=== PATIENT | female | born 1930 | race Caucasian/White ===

== ENCOUNTER 2019-01-08 14:35 | Inpatient (IN) | payer MEDICARE, OTHER ==
[~2019-01-08] VITALS: Ht 162.6 cm; Wt 68.9 kg
[~2019-01-08 14:35] MED LIST: PRED10TA PO
[2019-01-08 15:00] LABS: BASOPHILS % (AUTO) 0.3 % (0-1); EOSINOPHILS # (AUTO) 0.1 X10'3 (0-0.9); EOSINOPHILS % (AUTO) 0.5 % (0-6); HEMATOCRIT 43.7 % (35.0-45.0); HEMOGLOBIN 14.7 g/dl (12.0-16.0); LYMPHOCYTES # (AUTO) 0.8 X10'3 (1.1-4.8); MEAN CORPUSCULAR HEMOGLOBIN 31.9 PG (27.0-31.0); MEAN CORPUSCULAR HGB CONC 33.6 g/dL (33.0-36.5); MEAN CORPUSCULAR VOLUME 94.8 FL (78-98); MEAN PLATELET VOLUME 10.3 FL (7.4-10.4); MONOCYTES # (AUTO) 0.8 X10'3 (0-0.9); MONOCYTES % (AUTO) 6.6 % (2-12); NEUTROPHILS # (AUTO) 9.8 X10'3 (1.8-7.7); NEUTROPHILS % (AUTO) 85.6 % (42-75); PLATELET COUNT 206 X10'3 (140-440); RED BLOOD COUNT 4.61 X10'6 (4.20-5.60); RED CELL DISTRIBUTION WIDTH 14.2 % (11.5-14.5); WHITE BLOOD COUNT 11.4 X10'3 (4.5-11.0)
[2019-01-08 15:12] LABS: PARTIAL THROMBOPLASTIN TIME 35 SECONDS (22-32)
[2019-01-08 15:20] LABS: ALANINE AMINOTRANSFERASE 24 U/L (12-78); ALBUMIN 3.9 G/DL (3.4-5.0); ALBUMIN/GLOBULIN RATIO 1.1 (1.1-1.5); ALKALINE PHOSPHATASE 52 IU/L (46-116); ANION GAP 11 (8-16); ASPARTATE AMINO TRANSFERASE 34 U/L (10-37); BILIRUBIN,TOTAL 1.2 MG/DL (0.1-1.0); BLOOD UREA NITROGEN 16 MG/DL (7-18); BUN/CREATININE RATIO 13.4 (6.6-38.0); CALCIUM 9.7 MG/DL (8.5-10.1); CHLORIDE 105 MMOL/L (99-107); CREATININE 1.19 MG/DL (0.40-0.90); GLUCOSE 108 MG/DL (70-104); POTASSIUM 4.4 MMOL/L (3.5-5.1); SODIUM 141 MMOL/L (135-145); TOTAL CARBON DIOXIDE 25.1 MMOL/L (24-32); TOTAL PROTEIN 7.5 G/DL (6.4-8.2); eGFR 43 ML/MIN
[2019-01-08] MEDS ORDERED: aspirin 325mg tablet PO ONE (15:20)
[2019-01-08] MEDS ORDERED: LISI-600 PO (15:33)
[2019-01-08] MEDS ORDERED: aspirin 81mg tab.chew PO ONE ×2 (15:35→18:55)
[2019-01-08] MEDS ORDERED: heparin 25,000 UNIT/250ml bag 250 ML IV SCH (15:36)
[2019-01-08] MEDS ORDERED: heparin 10,000 units/1 ML INJ IV ONE (15:40)
[2019-01-08] MEDS ORDERED: nitroGLYCERIN 0.4mg/hour patch TD ONE (15:40)
[2019-01-08] MEDS ORDERED: morphine 2 MG/ML inj. syringe IV PRN ×2 (16:10)
[2019-01-08] MEDS ORDERED: magnesium hydroxide 30ml (MOM) UD suspension PO PRN (16:10)
[2019-01-08] MEDS ORDERED: potassium Cl 20 mEq SR tablet PO PRN ×2 (16:10)
[2019-01-08] MEDS ORDERED: potassium CL 10mEq/100ml bag 100 ML IV PRN ×2 (16:10)
[2019-01-08] MEDS ORDERED: acetaminophen 325mg tablet PO PRN (16:10)
[2019-01-08] MEDS ORDERED: mag hydrox/Alum hydrox/simeth 30ml oral suspension PO PRN (16:10)
[2019-01-08] MEDS ORDERED: nitroGLYCERIN 0.4mg SUBLingual tab SL PRN ×2 (16:10→18:55)
[2019-01-08] MEDS ORDERED: ondansetron/PF 4mg/2ml inj IV PRN (16:10)
[2019-01-08 16:57] LABS: HEMOGLOBIN A1C 5.7 % (4.5-6.2)
[2019-01-08] MEDS ORDERED: iohexol 350MG/ML 100ml bottle IV ONE (17:34)
[2019-01-08] MEDS ORDERED: iohexol 350 MG/ML 50ML vial IV ONE (17:34)
[2019-01-08] MEDS ORDERED: LIDOcaine 1% (10mg/ml)w/preservative injection 20ml MDV ONE (17:34)
[2019-01-08] MEDS ORDERED: fentaNYL/PF 50MCG/1 ML 2ML syringe ONE (17:34)
[2019-01-08] MEDS ORDERED: heparin 1,000unit/ml 10ml vial 10 ML ONE (17:34)
[2019-01-08] MEDS ORDERED: midazolam 2 mg/2 ml injection ONE (17:34)
[2019-01-08] MEDS ORDERED: tirofiban 12.5mg in NS 250mL 250 ML IV ONE (17:35)
[2019-01-08] MEDS ORDERED: diphenhydrAMINE 50 mg/ml inj ONE (17:35)
[2019-01-08 18:00] VITALS: BP 118/75
[2019-01-08] MEDS ORDERED: sodium chloride 0.45% 1,000 ML IV ONE (18:55)
[2019-01-08] MEDS ORDERED: OXAZEpam 15mg capsule PO PRN (19:00)
[2019-01-08] MEDS ORDERED: proCHLORperazine 10 MG/2 ml inj IV PRN (19:00)
[2019-01-08] MEDS ORDERED: HYDROcodone/acetaminophen 5mg/325mg tablet PO PRN (19:05)
[2019-01-08] MEDS ORDERED: HYDROcodone/acetaminophen 10/325mg tab PO PRN (19:05)
[2019-01-08] MEDS: carvedilol 6.25mg tablet PO SCH (19:49)
[2019-01-08] MEDS ORDERED: metoprolol tartrate 12.5mg (1/2 tablet) PO SCH (20:00)
[2019-01-08 22:00] VITALS: BP 110/75
[2019-01-09] VITALS (7 sets, daily range): BP systolic 83–118; BP diastolic 55–70
[2019-01-09 05:55] LABS: ALBUMIN 3.2 G/DL (3.4-5.0); ANION GAP 10 (8-16); BLOOD UREA NITROGEN 16 MG/DL (7-18); BUN/CREATININE RATIO 16.5 (6.6-38.0); CALCIUM 8.5 MG/DL (8.5-10.1); CHLORIDE 106 MMOL/L (99-107); CHOL/HDL RATIO 3.6 (0.00-4.99); CHOLESTEROL 147 MG/DL (0-200); CREATININE 0.97 MG/DL (0.40-0.90); GLUCOSE 94 MG/DL (70-104); HDL CHOLESTEROL 41 MG/DL (35-60); LDL CHOLESTEROL 97 MG/DL (50-100); POTASSIUM 4.2 MMOL/L (3.5-5.1); SODIUM 139 MMOL/L (135-145); TOTAL CARBON DIOXIDE 23.2 MMOL/L (24-32); TRIGLYCERIDES 72 MG/DL (20-135); eGFR 54 ML/MIN
[2019-01-09 05:57] LABS: BASOPHILS % (AUTO) 0.3 % (0-1); EOSINOPHILS # (AUTO) 0.2 X10'3 (0-0.9); EOSINOPHILS % (AUTO) 2.6 % (0-6); HEMOGLOBIN 13.6 g/dl (12.0-16.0); LYMPHOCYTES # (AUTO) 1.6 X10'3 (1.1-4.8); LYMPHOCYTES % (AUTO) 19.2 % (21-51); MEAN CORPUSCULAR HEMOGLOBIN 31.9 PG (27.0-31.0); MEAN CORPUSCULAR HGB CONC 33.9 g/dL (33.0-36.5); MEAN CORPUSCULAR VOLUME 94.2 FL (78-98); MEAN PLATELET VOLUME 10.3 FL (7.4-10.4); MONOCYTES # (AUTO) 0.8 X10'3 (0-0.9); MONOCYTES % (AUTO) 9.7 % (2-12); NEUTROPHILS # (AUTO) 5.5 X10'3 (1.8-7.7); NEUTROPHILS % (AUTO) 68.2 % (42-75); PLATELET COUNT 181 X10'3 (140-440); RED BLOOD COUNT 4.25 X10'6 (4.20-5.60); RED CELL DISTRIBUTION WIDTH 14.1 % (11.5-14.5); WHITE BLOOD COUNT 8.1 X10'3 (4.5-11.0)
--- NOTE | 2019-01-09 07:03 | NUR ---
Patient in room MED 316. I have received report from ARNIE Maria and had the opportunity to ask questions and assume patient care.
[2019-01-09] MEDS: clopidogrel 75mg tablet PO SCH (07:45)
[2019-01-09] MEDS: aspirin 81mg tab.chew PO SCH (07:46)
[2019-01-09] MEDS: carvedilol 6.25mg tablet PO SCH (07:52)
[2019-01-09] MEDS: K and/or MAG REPLACEMENT MC SCH (08:00)
[2019-01-09] MEDS ORDERED: aspirin 81mg tablet.DR PO SCH (08:00)
[2019-01-09] MEDS ORDERED: lisinopril 10 MG tablet PO SCH (08:00)
[2019-01-09 08:30] LABS: MAGNESIUM 1.8 MG/DL (1.5-2.4)
[2019-01-09] MEDS: atorvastatin 20mg tablet PO SCH (12:13)
[2019-01-09] MEDS ORDERED: carVEDilol 3.125mg tablet PO SCH (13:15)
--- NOTE | 2019-01-09 13:18 | NUR ---
DR. CASTRO AT BEDSIDE. NEW ORDERS RECEIVED: D/C COREG 6.25MG BID, D/C LISINOPRIL 2.5MG DAILY. START COREG 3.125MG PO BID GIVE ONE DOSE NOW, THEN START BID TONIGHT @ 1999.
--- NOTE | 2019-01-09 18:26 | NUR ---
Problems reprioritized. Patient report given, questions answered & plan of care reviewed with ARNIE Wilkerson and ARNIE Omer.
--- NOTE | 2019-01-09 18:40 | NUR ---
RECEIVED REPORT FROM TO GAITAN
[2019-01-09] MEDS: carVEDilol 3.125mg tablet PO SCH ×2 (19:51→22:23)
[2019-01-09] MEDS ORDERED: lisinopril 2.5mg tablet PO SCH (20:00)
[2019-01-10 02:00] VITALS: BP 102/59
[2019-01-10 04:26] LABS: BASOPHILS % (AUTO) 0.4 % (0-1); EOSINOPHILS # (AUTO) 0.5 X10'3 (0-0.9); HEMATOCRIT 39.9 % (35.0-45.0); HEMOGLOBIN 13.6 g/dl (12.0-16.0); LYMPHOCYTES # (AUTO) 1.6 X10'3 (1.1-4.8); LYMPHOCYTES % (AUTO) 18.2 % (21-51); MEAN CORPUSCULAR HEMOGLOBIN 31.9 PG (27.0-31.0); MEAN CORPUSCULAR VOLUME 93.9 FL (78-98); MEAN PLATELET VOLUME 10.6 FL (7.4-10.4); MONOCYTES % (AUTO) 11.3 % (2-12); NEUTROPHILS # (AUTO) 5.5 X10'3 (1.8-7.7); NEUTROPHILS % (AUTO) 64.1 % (42-75); PLATELET COUNT 164 X10'3 (140-440); RED BLOOD COUNT 4.25 X10'6 (4.20-5.60); RED CELL DISTRIBUTION WIDTH 14.1 % (11.5-14.5); WHITE BLOOD COUNT 8.6 X10'3 (4.5-11.0)
[2019-01-10 04:34] LABS: ALBUMIN 3.2 G/DL (3.4-5.0); ANION GAP 6 (8-16); BLOOD UREA NITROGEN 20 MG/DL (7-18); BUN/CREATININE RATIO 18.9 (6.6-38.0); CALCIUM 8.3 MG/DL (8.5-10.1); CHLORIDE 104 MMOL/L (99-107); CREATININE 1.06 MG/DL (0.40-0.90); GLUCOSE 99 MG/DL (70-104); POTASSIUM 4.6 MMOL/L (3.5-5.1); SODIUM 137 MMOL/L (135-145); TOTAL CARBON DIOXIDE 26.7 MMOL/L (24-32); eGFR 49 ML/MIN
[2019-01-10 04:48] LABS: LARGE PLATELETS FEW; PLATELET ESTIMATE NORMAL
[2019-01-10 06:00] VITALS: BP 108/68
--- NOTE | 2019-01-10 06:00 | NUR ---
Reviewed and agreed with ARNIE Omer's chart
--- NOTE | 2019-01-10 06:00 | NUR ---
Problems reprioritized. Patient report given, questions answered & plan of care reviewed with ARNIE Cm.
--- NOTE | 2019-01-10 07:20 | NUR ---
Patient in room MED 316. I have received report from ARNIE Wilkerson and had the opportunity to ask questions and assume patient care.
[2019-01-10] MEDS: carVEDilol 3.125mg tablet PO SCH (07:58)
[2019-01-10] MEDS: atorvastatin 20mg tablet PO SCH (07:58)
[2019-01-10] MEDS: aspirin 81mg tab.chew PO SCH (07:58)
[2019-01-10] MEDS: clopidogrel 75mg tablet PO SCH (07:59)
[2019-01-10] MEDS: K and/or MAG REPLACEMENT MC SCH (08:00)
[2019-01-10 11:00] VITALS: BP 106/70
[2019-01-10] MEDS ORDERED: ASPI-1265 PO (11:14)
[2019-01-10] MEDS ORDERED: COR3.125T PO (11:14)
[2019-01-10] MEDS ORDERED: CLOP75TA35 PO (11:14)
[2019-01-10] MEDS ORDERED: PANT40TA4 PO (11:14)
[2019-01-10] MEDS ORDERED: ATOR20TA66 PO (11:14)
[2019-01-10] MEDS ORDERED: LISI10TA4 PO (11:17)
--- NOTE | 2019-01-10 11:47 | NUR ---
NEW PRESCRIPTIONS FAXED TO [facility] ON [address] F: [phone]. I CALLED [facility] P: [phone] TO CONFIRM THEY RECEIVED FAX AND IF ANY ADDITIONAL INFORMATION IN NEEDED. PHARMACIST STAFF SAID THE ORDER LOOKS GOOD, THEY WILL START FILLING THESE MEDICATIONS AND HAVE THEM READY FOR STITCHDOWN TOE FORMER. PHARMACIST STAFF DID RELAY THAT THE PATIENT DOES NOT HAVE AN ACTIVE PROFILE WITH [facility] AND TO REMIND THE PATIENT TO BRING HER INSURANCE INFORMATION.
--- NOTE | 2019-01-10 13:00 | NUR ---
Orinentee documentation & medication adminstration: I have reviewed and agree with all interventions, assessments performed and documented by Yoanna GAITAN.
--- NOTE | 2019-01-10 13:00 | NUR ---
Patient discharged at this time, ambulated out to family private vehicle without event. Tolerated well. Eager to go home. Belongings sent with patient. Educated patient on discharge instructions. Verbalized understanding. Bedside monitor removed, IV discontinued. MD appointment made for follow-up for January 31 at 1015.
== END 2019-01-10 13:00 | disposition home or self-care (01) | DRG 281 ==
LOC: ER 14:35 → MED 3N 18:49 → CMPBEDREQ 19:04
PROVIDERS: ADMIT Internal Medicine; ATTEND Internal Medicine
PROC: 4A023N7 Measurement of Cardiac Sampling and Pressure, Left Heart, Percutaneous Approach (ICD-10-PCS; principal; 2019-01-08)
PROC: B2111ZZ Fluoroscopy of Multiple Coronary Arteries using Low Osmolar Contrast (ICD-10-PCS; 2019-01-08)
PROC: B2151ZZ Fluoroscopy of Left Heart using Low Osmolar Contrast (ICD-10-PCS; 2019-01-08)
PROC: B41F1ZZ Fluoroscopy of Right Lower Extremity Arteries using Low Osmolar Contrast (ICD-10-PCS; 2019-01-08)
DX: I21.4 Non-ST elevation (NSTEMI) myocardial infarction (principal); I51.81 Takotsubo syndrome; I42.8 Other cardiomyopathies; L23.7 Allergic contact dermatitis due to plants, except food; I95.9 Hypotension, unspecified; M54.2 Cervicalgia; R51 Headache; I25.10 Atherosclerotic heart disease of native coronary artery without angina pectoris; I10 Essential (primary) hypertension; Z79.899 Other long term (current) drug therapy; Z86.010 Personal history of colon polyps; Z90.49 Acquired absence of other specified parts of digestive tract; Z88.1 Allergy status to other antibiotic agents
CPT/HCPCS: 36415; 71045; 80048; 80053; 80061; 83036; 83735; 83880; 84484; 85025; 85610; 85730; 87081; 93005; 93306; 93458; 96365; 96376; 97116; 97161; 99152; 99285; A4620; A6258; C1760; C1769; G0378; J1200; J1644; J2001; J2250; J3010; J3246; Q9967

== ENCOUNTER 2019-02-08 06:30 | Emergency (ER) | payer MEDICARE, OTHER ==
[~2019-02-08] VITALS: Ht 165.1 cm; Wt 66.0 kg
[~2019-02-08 06:30] MED LIST changes: +ASPI-1265 PO; +ATOR20TA66 PO; +CLOP75TA35 PO; +COR3.125T PO; +PANT40TA4 PO; -PRED10TA PO
--- NOTE | 2019-02-08 06:47 | NUR ---
Awaiting for ED .
[2019-02-08 07:57] LABS: BASOPHILS % (AUTO) 0.6 % (0-1); EOSINOPHILS # (AUTO) 0.3 X10'3 (0-0.9); EOSINOPHILS % (AUTO) 6.1 % (0-6); HEMATOCRIT 38.8 % (35.0-45.0); HEMOGLOBIN 13.4 g/dl (12.0-16.0); LYMPHOCYTES # (AUTO) 1.1 X10'3 (1.1-4.8); LYMPHOCYTES % (AUTO) 20.3 % (21-51); MEAN CORPUSCULAR HEMOGLOBIN 32.5 PG (27.0-31.0); MEAN CORPUSCULAR HGB CONC 34.4 g/dL (33.0-36.5); MEAN CORPUSCULAR VOLUME 94.5 FL (78-98); MEAN PLATELET VOLUME 10.2 FL (7.4-10.4); MONOCYTES # (AUTO) 0.6 X10'3 (0-0.9); MONOCYTES % (AUTO) 10.3 % (2-12); NEUTROPHILS # (AUTO) 3.5 X10'3 (1.8-7.7); NEUTROPHILS % (AUTO) 62.7 % (42-75); PLATELET COUNT 174 X10'3 (140-440); RED BLOOD COUNT 4.11 X10'6 (4.20-5.60); WHITE BLOOD COUNT 5.7 X10'3 (4.5-11.0)
[2019-02-08 08:07] LABS: PARTIAL THROMBOPLASTIN TIME 32 SECONDS (22-32)
[2019-02-08 08:10] LABS: ALANINE AMINOTRANSFERASE 25 U/L (12-78); ALBUMIN 3.6 G/DL (3.4-5.0); ALBUMIN/GLOBULIN RATIO 1.1 (1.1-1.5); ALKALINE PHOSPHATASE 54 IU/L (46-116); ANION GAP 8 (8-16); ASPARTATE AMINO TRANSFERASE 20 U/L (10-37); BILIRUBIN,TOTAL 1.2 MG/DL (0.1-1.0); BLOOD UREA NITROGEN 13 MG/DL (7-18); CALCIUM 8.7 MG/DL (8.5-10.1); CHLORIDE 107 MMOL/L (99-107); GLUCOSE 92 MG/DL (70-104); POTASSIUM 4.1 MMOL/L (3.5-5.1); SODIUM 142 MMOL/L (135-145); TOTAL CARBON DIOXIDE 27.5 MMOL/L (24-32); eGFR 52 ML/MIN
--- NOTE | 2019-02-08 08:47 | NUR ---
awaiting discahrge paper.
[2019-02-08 08:52] VITALS: BP 191/83
== END 2019-02-08 08:54 | disposition home or self-care (01) ==
LOC: ER 06:31
DX: I10 Essential (primary) hypertension (principal); Z90.49 Acquired absence of other specified parts of digestive tract; Z88.1 Allergy status to other antibiotic agents; Z79.82 Long term (current) use of aspirin; Z79.899 Other long term (current) drug therapy; Z79.01 Long term (current) use of anticoagulants
CPT/HCPCS: 36415; 71045; 80053; 84484; 85025; 85610; 85730; 93005; 99284

== ENCOUNTER 2019-07-19 16:42 | Emergency (ER) | payer MEDICARE, OTHER ==
[~2019-07-19] VITALS: Ht 160 cm; Wt 65.9 kg
--- NOTE | 2019-07-19 17:02 | NUR ---
KERMIT Escalante at bedside.
[2019-07-19] MEDS ORDERED: acetaminophen 325mg tablet PO ONE (17:10)
--- NOTE | 2019-07-19 17:17 | NUR ---
Pt transported to CT via wheelchair with tech.
[2019-07-19 18:45] VITALS: BP 130/80
== END 2019-07-19 18:47 | disposition home or self-care (01) ==
LOC: ER 16:43
DX: M54.6 Pain in thoracic spine (principal); M54.5 Low back pain; I10 Essential (primary) hypertension; Z90.49 Acquired absence of other specified parts of digestive tract; Z88.1 Allergy status to other antibiotic agents; Z79.82 Long term (current) use of aspirin; Z79.2 Long term (current) use of antibiotics; Z79.899 Other long term (current) drug therapy
CPT/HCPCS: 72128; 99284

== ENCOUNTER 2019-07-20 13:41 | Emergency (ER) | payer MEDICARE, OTHER ==
[~2019-07-20] VITALS: Ht 160 cm; Wt 67.4 kg
[2019-07-20 15:18] LABS: BASOPHILS % (AUTO) 0.5 % (0-1); EOSINOPHILS # (AUTO) 0.1 X10'3 (0-0.9); EOSINOPHILS % (AUTO) 1.8 % (0-6); HEMATOCRIT 41.5 % (35.0-45.0); HEMOGLOBIN 14.4 g/dl (12.0-16.0); LYMPHOCYTES # (AUTO) 1.5 X10'3 (1.1-4.8); LYMPHOCYTES % (AUTO) 18.4 % (21-51); MEAN CORPUSCULAR HGB CONC 34.6 g/dL (33.0-36.5); MEAN CORPUSCULAR VOLUME 92.4 FL (78-98); MEAN PLATELET VOLUME 9.4 FL (7.4-10.4); MONOCYTES # (AUTO) 0.8 X10'3 (0-0.9); MONOCYTES % (AUTO) 9.7 % (2-12); NEUTROPHILS # (AUTO) 5.8 X10'3 (1.8-7.7); NEUTROPHILS % (AUTO) 69.6 % (42-75); PLATELET COUNT 215 X10'3 (140-440); RED BLOOD COUNT 4.49 X10'6 (4.20-5.60); RED CELL DISTRIBUTION WIDTH 14.9 % (11.5-14.5); WHITE BLOOD COUNT 8.3 X10'3 (4.5-11.0)
[2019-07-20 15:32] LABS: ALANINE AMINOTRANSFERASE 17 U/L (12-78); ALBUMIN 3.7 G/DL (3.4-5.0); ALBUMIN/GLOBULIN RATIO 1.1 (1.1-1.5); ALKALINE PHOSPHATASE 51 IU/L (46-116); ANION GAP 5 (8-16); ASPARTATE AMINO TRANSFERASE 19 U/L (10-37); BILIRUBIN,TOTAL 0.9 MG/DL (0.1-1.0); BLOOD UREA NITROGEN 11 MG/DL (7-18); CHLORIDE 103 MMOL/L (99-107); CREATININE 0.92 MG/DL (0.40-0.90); GLUCOSE 84 MG/DL (70-104); POTASSIUM 3.9 MMOL/L (3.5-5.1); SODIUM 137 MMOL/L (135-145); TOTAL CARBON DIOXIDE 28.9 MMOL/L (24-32); eGFR 57 ML/MIN
[2019-07-20 16:02] VITALS: BP 173/81
== END 2019-07-20 16:03 | disposition home or self-care (01) ==
LOC: ER 13:41
DX: B34.9 Viral infection, unspecified (principal); R68.83 Chills (without fever); R51 Headache; M79.10 Myalgia, unspecified site; R53.83 Other fatigue; I10 Essential (primary) hypertension; Z86.73 Personal history of transient ischemic attack (TIA), and cerebral infarction without residual deficits; Z90.49 Acquired absence of other specified parts of digestive tract; Z88.1 Allergy status to other antibiotic agents; Z79.82 Long term (current) use of aspirin; Z79.899 Other long term (current) drug therapy
CPT/HCPCS: 36415; 71045; 80053; 83880; 85025; 93005; 99285